=== PATIENT | female | born 2000 | race Two or more races ===

== ENCOUNTER 2023-09-30 09:06 | Emergency (ER) | payer OTHER ==
[~2023-09-30] VITALS: Ht 160 cm; Wt 63.5 kg
[2023-09-30] MEDS ORDERED: KETOROLAC TROMETHAMINE 15 MG VIAL IM STA (10:00)
== END 2023-09-30 19:46 | disposition home or self-care (01) ==
LOC: ER 09:06
DX: S52.592A Other fractures of lower end of left radius, initial encounter for closed fracture (principal); S62.102A Fracture of unspecified carpal bone, left wrist, initial encounter for closed fracture; S62.002A Unspecified fracture of navicular [scaphoid] bone of left wrist, initial encounter for closed fracture; S93.692A Other sprain of left foot, initial encounter; W19.XXXA Unspecified fall, initial encounter; Y93.55 Activity, bike riding; Y92.89 Other specified places as the place of occurrence of the external cause; Y99.8 Other external cause status

== ENCOUNTER 2023-10-13 14:47 | Outpatient (CLI) | payer OTHER | END 2023-10-13 14:58 | disposition home or self-care (01) | LOC: RAD 14:47 | PROVIDERS: ATTEND Orthopaedic Surgery | DX: S52.572D Other intraarticular fracture of lower end of left radius, subsequent encounter for closed fracture with routine healing (principal) ==